=== PATIENT | male | born 1960 | race Caucasian/White ===

== ENCOUNTER → 2023-06-30 | Day surgery (SDC) | payer OTHER ==
[2023-06-21 16:31] LABS: ANION GAP 15.2 mmol/L (8-16); CALCIUM 9.4 mg/dL (8.4-10.2); POTASSIUM 4.2 mmol/L (3.5-5.1)
[~2023-06-30] MED LIST: ACETAMINOPHEN 1000 MG/100 ML IV ONE; ADDERALL 30 MG30 MG PO; ADZENYS PO; AMITRIPTYLINE100 MG PEG; BACTRIM 400-801 EACH PO; BACTROBAN NASAL1 GM PO; BUPIVACAINE HCL 0.5% INJ 30 ML VIAL INJ ONE; BYSTOLIC5 MG PO; CEFAZOLIN SODIUM 2 GM ONE; CELEBREX100 MG PO; CLINDAMYCIN HC150 MG PO; CRESTOR10 MG PO; DEXAMETHASONE SOD PHOS INJ 4 MG/ML SDV ONE; DICYCLOMINE HCL20 MG PO; EPHEDRINE SULFATE INJ 50 MG/ML VIAL ONE; FAMOTIDINE 20 MG/2 ML VIAL IV ONE; FENTANYL CITRATE/PF 100MCG/2 ML INJ ONE; FLOMAX0.4 MG PO; GLIPIZIDE PO; GLIPIZIDE5 MG PO; KETOROLAC TROMETHAMINE 30 MG/ML VIAL ONE; LACTATED RINGER'S 1,000 ML ONE; LANTUS100 UNITS/ SQ; LIDOCAINE HCL 2% LOCAL INJ 5 ML SDV VIAL INJ ONE; LOSARTAN PO; LOSARTAN POTASS25 MG PO; LOSARTAN-HCTZ1 EACH PO; LYRICA100 MG PO; METOCLOPRAMIDE HCL 10 MG/2ML VIAL ONE; METOLAZONE5 MG PO; MOBIC15 MG PO; MONTELUKAST SOD10 MG PO; MOUNJARO10 MG/0.5 SQ; NABUMETONE500 MG PO; OMEPRAZOLE40 MG PO; ONDANSETRON HCL INJ 2MG/ML 2ML 2 MG/ML VIAL ONE; PHENYLEPHRINE HCL 1% 10 MG/ML VIAL ONE; POLYMYXIN B-TMP10 ML; PROPOFOL IV EMULSION 10 MG/ML 20 ML VIAL ONE; SEVOFLURANE INHAL SOLN 250 ML PEN BTL ONE; VYVANSE70 MG PO; ZOLOFT100 MG PO
[2023-06-30 10:00] VITALS: TEMP 97.9
[2023-06-30 10:30] VITALS: BP 132/73; PULSE 66; RESP 18; O2SAT 98
== END | disposition home or self-care (01) ==
LOC: OR 06:01
PROVIDERS: ATTEND Podiatrist Foot & Ankle Surgery
DX: M20.41 Other hammer toe(s) (acquired), right foot (principal); G47.33 Obstructive sleep apnea (adult) (pediatric); I10 Essential (primary) hypertension; E78.00 Pure hypercholesterolemia, unspecified; E11.9 Type 2 diabetes mellitus without complications; M19.90 Unspecified osteoarthritis, unspecified site; G89.29 Other chronic pain; F90.9 Attention-deficit hyperactivity disorder, unspecified type; Z91.048 Other nonmedicinal substance allergy status; Z79.84 Long term (current) use of oral hypoglycemic drugs; Z79.85 Long-term (current) use of injectable non-insulin antidiabetic drugs; Z79.899 Other long term (current) drug therapy; Z87.891 Personal history of nicotine dependence
CPT/HCPCS: 28285 ×4; 36415 ×2; 80048; 82948; 93005; J0131; J1100; J1885; J2001; J2371; J2405; J2704; J2765; J3010; J7121; C1713; C1762